=== PATIENT | female | born 1990 | race Caucasian/White ===

== ENCOUNTER 2017-01-26 15:41 | Outpatient (CLI) | payer MEDICAID ==
[~2017-01-26] VITALS: Ht 165.1 cm; Wt 91.3 kg
[2017-01-26 16:14] VITALS: BP 107/68; PULSE 66; RESP 18
[2017-01-26] MEDS ORDERED: FERR236T PO (16:17)
[2017-01-26] MEDS ORDERED: PRENAT PO (16:17)
[2017-01-26] MEDS ORDERED: CALC600T11 PO (16:18)
--- NOTE | 2017-01-26 18:38 | QN ---
Documentation Comment ipu 38 weeks diarreah vss exam wnl a/p iup 38 weeks diarrhea resolved dc home FABIANA HURST MD Jan 26, 2017 18:38
--- NOTE | 2017-01-26 19:04 | TRIAGE ---
OB Triage Datetime Report Generated by CPN: 01/26/2017 19:03 Datetime: 01/26/2017 17:54 Labor Evaluation Frequency: 0 Monitor Mode: External Pattern: Normal: <= 5 Contractions in 10 Minutes Resting Tone [place]: Relaxed Heart Rate FHR Baseline Rate: 140 Monitor Mode: External US FHR Baseline Changes: No Baseline Change Variability: Moderate 6-25 bpm Accelerations: 15X15 Decelerations: None Datetime: 01/26/2017 17:43 Monitor Mode: External US Datetime: 01/26/2017 17:00 Labor Evaluation Frequency: 0 Monitor Mode: External Pattern: Normal: <= 5 Contractions in 10 Minutes Resting Tone [place]: Relaxed Heart Rate FHR Baseline Rate: 140 Monitor Mode: External US FHR Baseline Changes: No Baseline Change Variability: Moderate 6-25 bpm Accelerations: 15X15 Decelerations: None Datetime: 01/26/2017 16:19 Time of Arrival: 01/26/2017 15:36 EGA: 37.5 Arrived By: Ambulatory Arrived From: Home Chief Complaint: DIARRHEA - STARTED MONDAY AFTERNOON; TODAY REPORTS DIARRHEA x1 THIS AM, HAS BEEN ABLE TO KEEP FOOD DOWN SINCE THEN Movement: Present Contractions: Denies/Absent Rupture of Membranes: Denies Vaginal Bleeding: None Vaginal Discharge: Denies Patient Complaints: Other Additional Patient Complaints: CONSTANT BACK PAIN AT NIGHT Time Provider Notified: 01/25/2017 16:34 Provider Notified: DR. HURST Initial Plan: EFM x2 Datetime: 01/26/2017 16:10 Stage of : OB Triage Assessment Type: Triage Maternal Assessment Level of Consciousness: Fully Conscious Headache: Denies Blurred Vision: No Respiratory Effort: Unlabored; Regular Rhythm; Equal Expansion Breath Sounds, Left: Clear and Equal Breath Sounds, Right: Clear and Equal Nausea/Vomiting: Denies RUQ Epigastric Pain: Denies Lower Extremities Edema: None Degree: None Upper Extremities Edema: None Degree: None Facial Edema: None Temperature Route: Oral Fall Risk Assessment History of Falling: (0) No Secondary Diagnosis: (0) No Ambulatory Aid: (0) Bedrest/Nurse Assist IV Therapy: (0) No Gait: (0) Normal/Bedrest/Immobile Mental Status: (0) Oriented to Own Ability Fall Score: 0 Fall Risk Score Definition: No Risk: No action required Pain Assessment Pain Scale: 7 Pain Presence: Intermittent Pain Type: Sharp Pain Location: Abdomen (Annotations: STOMACH PAIN )
== END 2017-01-26 18:35 | disposition home or self-care (01) ==
LOC: OBT 15:41 → L-D 15:43 → OBT 18:35
PROVIDERS: ATTEND Obstetrics & Gynecology
DX: O26.893 Other specified pregnancy related conditions, third trimester (principal); Z3A.38 38 weeks gestation of pregnancy; R19.7 Diarrhea, unspecified
CPT/HCPCS: G0463

== ENCOUNTER 2017-02-01 09:13 | Inpatient (IN) | payer MEDICAID ==
[~2017-02-01] VITALS: Ht 165.1 cm; Wt 90.7 kg
[~2017-02-01 09:13] MED LIST: CALC600T24 PO; FERR236T PO; PRENAT PO
[2017-02-01 09:18] VITALS: Ht 165.1 cm; Wt 90.7 kg
[2017-02-01 09:19] VITALS: BP 102/73; PULSE 79; RESP 18
--- NOTE | 2017-02-01 10:16 | RADRPT ---
PROCEDURE: OB ultrasound for biophysical profile CLINICAL INDICATION: Spontaneous rupture of membranes TECHNIQUE: Multiple sonographic images of the pelvis were obtained. Transabdominal views of the g ravid uterus are available for review. The images were reviewed on a PACS workstation. COMPARISON: None FINDINGS: breathing movement = 2/2 tone = 2/2 motion = 2/2 JOSSY = 2/2 JOSSY = 9.9 cm Single live intrauterine with cardiac activity of 143 bpm. position is cephal ic. The placenta is posterior. IMPRESSION: 1. Single live intrauterine gestation. 2. Biophysical profile = 8/8. 3. JOSSY = 9.9 cm. RPTAT: HH .Shana Ward MD, MD Date Time Electronically viewed and signed by .Shana Ward MD, on 02/01/2017 10:16 .G/
--- NOTE | 2017-02-01 11:13 | TRIAGE ---
OB Triage Datetime Report Generated by CPN: 02/01/2017 11:12 Datetime: 02/01/2017 10:44 Labor Evaluation Frequency: 5-7 Monitor Mode: External Duration (sec)2399: 60-90 Pattern: Normal: <= 5 Contractions in 10 Minutes Resting Tone [place]: Relaxed Pain Assessment Pain Scale: 6 Pain Presence: Intermittent Pain Type: Contraction Pain Location: Abdomen Pain Relief Measures: Comfort Measures Datetime: 02/01/2017 10:08 Labor Evaluation Frequency: IRREG Monitor Mode: External Duration (sec)2399: 60-90 Pattern: Normal: <= 5 Contractions in 10 Minutes Resting Tone [place]: Relaxed Heart Rate FHR Baseline Rate: 150 Monitor Mode: External US Variability: Moderate 6-25 bpm Accelerations: 15X15 Decelerations: None Category: Category I Datetime: 02/01/2017 09:31 Assessment Type: Admission Assessment Maternal Assessment Level of Consciousness: Fully Conscious DTR's/Clonus: DTRs 2+; No Clonus Headache: Denies Blurred Vision: No Respiratory Effort: Unlabored; Regular Rhythm; Equal Expansion Breath Sounds, Left: Clear and Equal Breath Sounds, Right: Clear and Equal Nausea/Vomiting: Denies RUQ Epigastric Pain: Denies Lower Extremities Edema: None Degree: None Upper Extremities Edema: None Degree: None Facial Edema: None Fall Risk Assessment History of Falling: (0) No Secondary Diagnosis: (0) No Ambulatory Aid: (0) Bedrest/Nurse Assist IV Therapy: (0) No Gait: (0) Normal/Bedrest/Immobile Mental Status: (0) Oriented to Own Ability Fall Score: 0 Fall Risk Score Definition: No Risk: No action required Datetime: 02/01/2017 09:30 Time of Arrival: 02/01/2017 09:05 EGA: 38.4 Arrived By: Ambulatory Arrived From: Home Chief Complaint: PT. C/O OF LEAKING SINCE 0800 Movement: Present Contractions: Denies/Absent Time Contractions Began: 02/01/2017 08:00 Contractions: 5-7 Rupture of Membranes: Ruptured Vaginal Bleeding: None Vaginal Discharge: Denies Recent Sexual Intercouse: Denies Abdominal Trauma: Not Applicable Patient Complaints: None Time Provider Notified: 02/01/2017 09:45 Provider Notified: DR. HURST Initial Plan: toco/ us, NITROZINE NEGATIVE, ROM + POSITIVE, BPP-8/8, JOSSY- 9.9 CM Datetime: 02/01/2017 09:21 Stage of : OB Triage Pain Presence: None/Denies Datetime: 01/26/2017 16:19 EGA: 37.5 Datetime: 01/26/2017 16:10 Fall Score: 0 Fall Risk Score Definition: No Risk: No action required
[2017-02-01] MEDS ORDERED: METHYLERGONOVINE 0.2 MG INJ IM PRN (11:30)
[2017-02-01] MEDS ORDERED: CARBOPROST 250 MCG INJ IM PRN (11:30)
[2017-02-01] MEDS ORDERED: LACTATED RINGER'S 1,000 ML IV PRN (11:30)
[2017-02-01] MEDS ORDERED: MISOPROSTOL 200 MCG TAB PR PRN (11:30)
[2017-02-01] MEDS ORDERED: IBUPROFEN 600 MG TAB PO PRN (11:30)
[2017-02-01] MEDS ORDERED: OXYTOCIN 30 UNITS/LR 500 ML IV SCH ×3 (11:30)
[2017-02-01] MEDS ORDERED: LIDOCAINE 1% (MPF) 30 ML INJ INJ PRN (11:30)
[2017-02-01] MEDS ORDERED: OXYTOCIN 30 UNITS/LR 500 ML IV PRN (11:30)
[2017-02-01] MEDS ORDERED: BUTORPHANOL 2 MG INJ IV PRN (11:30)
[2017-02-01] MEDS: LACTATED RINGER'S 1,000 ML IV SCH ×4 (11:52→22:27)
[2017-02-01 12:15] LABS: BASOPHILS % 0.4 % (0.0-2.0); EOSINOPHILS % 0.5 % (0.0-7.0); HEMATOCRIT 38.1 % (37.0-47.0); LYMPHOCYTES # 1.3 10^3/ul (0.8-2.9); LYMPHOCYTES % 23.8 % (15.0-51.0); MEAN CORPUSCULAR HEMOGLOBIN 26.4 pg (29.0-33.0); MEAN CORPUSCULAR HGB CONC 31.5 g/dl (32.0-37.0); MEAN CORPUSCULAR VOLUME 83.9 fl (82.0-101.0); MONOCYTE # 0.5 10^3/ul (0.3-0.9); MONOCYTES % 8.6 % (0.0-11.0); NEUTROPHIL # 3.7 10^3/ul (1.6-7.5); NEUTROPHILS % 66.2 % (39.0-77.0); PLATELET COUNT 156 10^3/UL (140-415); RED BLOOD COUNT 4.54 10^6/ul (4.20-5.40); RED CELL DISTRIBUTION WIDTH 14.4 % (11.5-14.5); WHITE BLOOD COUNT 5.6 10^3/ul (4.8-10.8)
[2017-02-01 12:28] LABS: INR 0.82; PROTIME 11.3 Sec (12.2-14.2); PT RATIO 0.9
[2017-02-01 12:29] LABS: PARTIAL THROMBOPLASTIN TIME 25.8 Sec (25.0-35.0)
[2017-02-01] MEDS ORDERED: LACTATED RINGER'S 1,000 ML IV ONE (15:37)
[2017-02-01] MEDS ORDERED: CITRIC ACID/NA CITRATE 30 ML CUP ONE (15:38)
[2017-02-01] MEDS ORDERED: ONDANSETRON 4 MG INJ ONE (15:38)
[2017-02-01] MEDS ORDERED: FENTAnyl 2MCG/ML-ROPIV 0.2% 100 ML ONE (15:46)
[2017-02-01] MEDS ORDERED: morphine 4 MG/ML VIAL IV PRN (16:00)
[2017-02-01] MEDS ORDERED: ONDANSETRON 4 MG INJ IV ONE (16:00)
[2017-02-01] MEDS ORDERED: KETOROLAC 30 MG INJ IV PRN (16:00)
[2017-02-01] MEDS ORDERED: TRIMETHOBENZAMIDE 100 MG/ML VIAL IM PRN (16:00)
[2017-02-01] MEDS ORDERED: FENTAnyl 2MCG/ML-ROPIV 0.2% 100 ML BAG EPI SCH (16:00)
[2017-02-01] MEDS ORDERED: morphine 2 MG INJ IV PRN (16:00)
[2017-02-01] MEDS ORDERED: NALBUPHINE HCL (10 MG/1 ML) INJ IV PRN (16:00)
[2017-02-01] MEDS ORDERED: DIPHENHYDRAMINE 50 MG INJ IV PRN (16:00)
[2017-02-01] MEDS ORDERED: CITRIC ACID/NA CITRATE 30 ML CUP PO ONE (16:00)
[2017-02-01] MEDS ORDERED: NALOXONE (0.4 MG/ML) INJ IV PRN (16:00)
[2017-02-01] MEDS ORDERED: ONDANSETRON 4 MG INJ IV PRN (16:00)
--- NOTE | 2017-02-01 16:26 | HP ---
Date/Time of Note Date/Time of Note DATE: 02/01/17 TIME: 16:22 OB - History Hx of Present Free Text/Dictation 02/01/2017 Chief Complaint: SROM Estimated Due Date: Feb 11, 2017 : 1 Para: 0 Spontaneous : 0 Therapeutic : 0 Care: Good Care Obstetrical Complications: None Other Concerns: 26 years old with IUP at 38 weeks and 4 days presented to the hospital with complaint of LOF and was noted to have SROM. ROM test positive and the patient also was noted to be in early labor. GBS: negative Antepartum course non complicated Past Family/Social History * Past Medical, Surgical, Family and Obstetric Histories reviewed from chart. Blood Type: O- Rubella: not immune RPR/VDRL: Negative GBS Status: Negative HBsAG: Negative OB Admission Exam Vital Signs Vital Signs Vital Signs Date Time Temp Pulse Resp B/P Pulse Ox O2 Delivery O2 Flow Rate FiO2 02/01/17 09:19 98.2 79 18 102/73 Room Air Physical Exam HEENT: WNL Lungs: Clear Abdomen: WNL Reflexes: Normal Cervical Dilatation: 3cm Effacement: 100% Station: -1 Membranes: Ruptured Heart Rate: 130's Accelerations: Accelerations Present Decelerations: No Decelerations Varibility: Moderate Contractions on Admission: < 5 Minutes Apart Intensity: Moderate Last 72 hours Lab Results CBC & BMP 02/01/17 11:45 OB Assessment/Plan Reason for admission: active labor Other Assessment: Early labor SROM FHT: Cat 1 Other plan: Admit Start labor augmentation Anticipate Follow up with labor curve ANA LAURA HURST MD Feb 01, 2017 16:25
[2017-02-01] MEDS ORDERED: AMPICILLIN 2 GM/NS (PMX) 100 ML IVPB ONE (18:00)
[2017-02-01] MEDS ORDERED: MINERAL OIL LIGHT 10 ML VIAL ONE (22:18)
[2017-02-01] MEDS: AMPICILLIN 1 GM/NS (PMX) 50 ML IVPB SCH (22:27)
[2017-02-01] MEDS ORDERED: MINERAL OIL LIGHT 10 ML VIAL TOP ONE (22:30)
--- NOTE | 2017-02-02 00:59 | LDN ---
Date/Time of Note Date/Time of Note DATE: 02/02/17 TIME: 00:57 Delivery Summary February 01, 2017 Placenta Delivered: Spontaneously Meconium: none Episiotomy: No Perineal laceration: 1 Anesthesia type: Epidural Estimated blood loss: 300 Sponge & Needle done & correct: Yes All needle counts correct: Yes Any foreign bodies felt in the: No Problems: Delivery Information Sex Sex: female Apgars 1 Minute: 9 5 Minute: 9 Suctioning Nose & mouth suctioned at marta: Yes Delee suction performed: Yes Umbilical Cord Umbilical cord with: 3 Vessels Cord presentations: nuchal cord Nuchal cord present X: 1 Cord Blood was obtained: Yes ANA LAURA HURST MD Feb 02, 2017 00:59
[2017-02-02] MEDS: AMPICILLIN 1 GM/NS (PMX) 50 ML IVPB SCH ×3 (01:00→09:00)
[2017-02-02 01:50] VITALS: BP 127/66; PULSE 60; RESP 20
[2017-02-02 03:00] VITALS: BP 124/67; PULSE 61; RESP 20
[2017-02-02 04:00] VITALS: BP 100/56; PULSE 87; RESP 20
[2017-02-02] MEDS ORDERED: LACTATED RINGER'S 1,000 ML IV* SCH (04:19)
[2017-02-02] MEDS ORDERED: CARBOPROST 250 MCG INJ IM PRN (04:30)
[2017-02-02] MEDS ORDERED: OXYTOCIN 30 UNITS/LR 500 ML IV PRN (04:30)
[2017-02-02] MEDS ORDERED: BENZOCAINE 20% 56 ML SPRAY TOP PRN (04:30)
[2017-02-02] MEDS ORDERED: LANOLIN 7 GM TUBE TOP PRN (04:30)
[2017-02-02] MEDS ORDERED: MISOPROSTOL 200 MCG TAB PR PRN (04:30)
[2017-02-02] MEDS ORDERED: OXYCODONE/ASPIRIN (4.88/325) TAB PO PRN ×2 (04:30)
[2017-02-02] MEDS ORDERED: ACETAMINOPHEN 325 MG TAB PO PRN (04:30)
[2017-02-02] MEDS ORDERED: METHYLERGONOVINE 0.2 MG INJ IM PRN (04:30)
[2017-02-02] MEDS ORDERED: WITCH HAZEL/GLYCERIN PAD PR PRN (04:30)
[2017-02-02] MEDS: IBUPROFEN 600 MG TAB PO SCH ×4 (06:00→23:54)
[2017-02-02 08:00] VITALS: BP 86/48; PULSE 71; RESP 18
[2017-02-02] MEDS: SENNA/DOCUSATE NA (8.6MG/50MG) TAB PO SCH ×2 (09:21→21:17)
[2017-02-02 10:34] LABS: HEMATOCRIT 33.8 % (37.0-47.0); HEMOGLOBIN 11.1 g/dl (12.0-16.0)
--- NOTE | 2017-02-02 13:41 | QN ---
Documentation Comment ppd1 pt doing well vss exam wnl a/p ppd1 continue care FABIANA HURST MD Feb 02, 2017 13:41
[2017-02-02 16:30] VITALS: BP 114/56; PULSE 57; RESP 16
[2017-02-02 20:00] VITALS: BP 102/54; PULSE 63; RESP 18
[2017-02-03 03:40] VITALS: BP 91/55; PULSE 66; RESP 18
[2017-02-03] MEDS: IBUPROFEN 600 MG TAB PO SCH (05:45)
[2017-02-03 08:46] VITALS: BP 118/71; PULSE 90; RESP 18
[2017-02-03] MEDS: SENNA/DOCUSATE NA (8.6MG/50MG) TAB PO SCH (10:10)
--- NOTE | 2017-02-03 10:39 | PN ---
Date/Time of Note Date/Time of Note DATE: 02/03/17 TIME: 10:39 OB Subjective Subjective Subjective No complaints. OB Objective Objective Objective Gen: NAD Abd: FF OB Assessment/Plan Other Assessment: PPD2 s/p Other plan: Discharge home. Pelvic rest. F/u with OB clinic for care. LULY BUTCHER Feb 03, 2017 10:39
--- NOTE | 2017-02-03 10:40 | DS ---
Date/Time of Note Date/Time of Note DATE: 02/03/17 TIME: 10:40 Obstetrical Discharge Record Final Diagnosis Final Diagnosis: Term delivered Vaginal Delivery Obstetrical Delivery: Spontaneous Condition on Discharge Physical Assessment Last Vitals: See PN. Patient Condition: Good LULY BUTCHER Feb 03, 2017 10:40
[2017-02-04] MEDS ORDERED: DIPHTH/TET/ACEL PERTUSS (ADULT) 0.5 ML VIAL IM* ONE (09:00)
== END 2017-02-03 12:10 | disposition home or self-care (01) | DRG 775 ==
LOC: L-D 09:13 → OBT 09:13 → L-D 11:10 → OBT 11:19 → PP1 02-02 02:06
PROVIDERS: ADMIT Obstetrics & Gynecology; ATTEND Obstetrics & Gynecology
PROC: 10E0XZZ Delivery of Products of Conception, External Approach (ICD-10-PCS; principal; 2017-02-01)
PROC: 0HQ9XZZ Repair Perineum Skin, External Approach (ICD-10-PCS; 2017-02-01)
PROC: 3E033VJ Introduction of Other Hormone into Peripheral Vein, Percutaneous Approach (ICD-10-PCS; 2017-02-01)
DX: O70.0 First degree perineal laceration during delivery (principal); Z68.33 Body mass index [BMI] 33.0-33.9, adult; O99.214 Obesity complicating childbirth; O69.81X0 Labor and delivery complicated by cord around neck, without compression, not applicable or unspecified; Z3A.38 38 weeks gestation of pregnancy; Z37.0 Single live birth
CPT/HCPCS: 62319; 76818; 84112; 85014; 85018; 85025; 85610; 85730; 86592; 86850; 86885; 86900; 86901; 87340; 99464; G0463; J0290; J2210; J2405; J2590; J2790; J3010; J7120